=== PATIENT | female | born 1960 | race Hispanic/Latino ===

== ENCOUNTER 2018-12-14 21:14 | Emergency (ER) | payer BC ==
[2018-12-14] MEDS ORDERED: DiphenhydrAMINE 50 mg/ml Inj IV STA (21:32)
[2018-12-14] MEDS ORDERED: Albuterol-Ipratrop 3 mg / 0.5 (3 ml) UD IH STA (21:32)
--- NOTE | 2018-12-14 21:35 | ED PDOC ---
HPI: Allergic Reaction Time Seen by Provider: 12/14/18 21:24 Chief Complaint (Nursing): Allergic Reaction Chief Complaint (Provider): allergic reaction History Per: Patient, EMS History/Exam Limitations: no limitations Onset/Duration Of Symptoms: Mins Current Symptoms Are (Timing): Better Context: Food Possible Cause: Food Associated Symptoms: Dyspnea Home/EMS Treatment: Epi-pen Additional Complaint(s): 58 y/o female brought in by EMS for evaluation of allergic reaction prior to arrival. Patient states she had just gotten on the public bus when she smelled peanuts and started to have difficulty breathing and coughing which worsened so she gave herself an epipen injection. Patient reports improvement upon arrival to ED. Denies rash, facial swelling, throat itching/swelling, difficulty speaking/swallowing, chest pain, shortness of breath, palpitations Past Medical History Reviewed: Historical Data, Nursing Documentation, Vital Signs Vital Signs: Last Vital Signs Temp 98.1 F 12/14/18 21:18 Pulse 122 H 12/14/18 21:18 Resp 16 12/14/18 21:18 BP 149/98 H 12/14/18 21:18 Pulse Ox 99 12/14/18 21:18 - Medical History PMH: Asthma, Hypothyroidism - Surgical History Surgical History: No Surg Hx - Family History Family History: States: No Known Family Hx - Home Medications Home Medications: Ambulatory Orders Medication Instructions Recorded predniSONE [Prednisone] 60 mg PO DAILY #12 tab 12/15/18 - Allergies Allergies/Adverse Reactions: Allergies Allergy/AdvReac Type Severity Reaction Status Date / Time peanut Allergy SHORTNESS Verified 12/14/18 21:18 OF BREATH shellfish derived Allergy SHORTNESS Verified 12/14/18 21:18 OF BREATH tree nut Allergy SHORTNESS Verified 12/14/18 21:18 OF BREATH wheat Allergy SHORTNESS Verified 12/14/18 21:18 OF BREATH dairy Allergy SHORTNESS Uncoded 12/14/18 21:18 OF BREATH Review of Systems ROS Statement: Except As Marked, All Systems Reviewed And Found Negative Respiratory: Positive for: Shortness of Breath Physical Exam - Reviewed Nursing Documentation Reviewed: Yes Vital Signs Reviewed: Yes - Physical Exam Appears: Positive for: Well, Non-toxic, No Acute Distress Head Exam: Positive for: ATRAUMATIC, NORMAL INSPECTION, NORMOCEPHALIC Skin: Positive for: Normal Color Eye Exam: Positive for: Normal appearance ENT: Positive for: Normal ENT Inspection Cardiovascular/Chest: Positive for: Regular Rate, Rhythm Respiratory: Positive for: Normal Breath Sounds Gastrointestinal/Abdominal: Positive for: Normal Exam Back: Positive for: Normal Inspection Extremity: Positive for: Normal ROM Neurological/Psych: Positive for: Awake, Alert, Oriented (x3) - ECG O2 Sat by Pulse Oximetry: 99 - Progress ED Course And Treament: -ekg -compliance monitor -IV solumedrol -IV benadryl -IV pepcid -duoneb 23:00 Patient resting comfortably; no distress. Vitals stable on monitor 00:30 Patient resting comfortably; states she is feeling much better. Vitals stable Patient educated on findings, discharged with rx Prednisone Advised to continue anti-histamines Follow up PMD/Order Analyst Return precautions given Disposition - Clinical Impression Clinical Impression: Allergic reaction - Patient ED Disposition Is Patient to be Admitted: No Counseled Patient/Family Regarding: Studies Performed, Diagnosis, Need For Followup, Rx Given - Disposition Disposition: Routine/Home Disposition Time: 00:24 Condition: IMPROVED Prescriptions: predniSONE [Prednisone] 60 mg PO DAILY #12 tab Instructions: Anaphylaxis (DC), Food Allergy Forms: [facility] ([place])
[2018-12-14] MEDS ORDERED: Albuterol-Ipratrop 3 mg / 0.5 (3 ml) UD ONE (21:39)
[2018-12-14] MEDS ORDERED: DiphenhydrAMINE 50 mg/ml Inj ONE (21:40)
[2018-12-15 00:35] VITALS: BP 131/75; PULSE 108; RESP 18; TEMP 98.5; O2SAT 96
--- NOTE | 2018-12-15 10:53 | CARD ---
APPROVED REPORT Date of service: 12/14/2018 EKG Measurement Heart [id number] <Conclusion> Sinus tachycardia Otherwise normal ECG
== END 2018-12-15 00:50 | disposition home or self-care (01) ==
LOC: H.ER 21:14
DX: T78.40XA Allergy, unspecified, initial encounter (principal); J45.909 Unspecified asthma, uncomplicated; E03.9 Hypothyroidism, unspecified
CPT/HCPCS: 93005; 94640; 96374; 96375; 99283; J1200; J2930